=== PATIENT | male | born 1940 | race African-American/Black ===

== ENCOUNTER 2016-08-14 17:04 | Inpatient (IN) | payer OTHER ==
[~2016-08-14] VITALS: Ht 182.9 cm; Wt 72.8 kg
[2016-08-14] VITALS (21 sets, daily range): BP systolic 84–123; BP diastolic 48–62
--- NOTE | ~2016-08-14 | HC ---
[facility] [place] [address] CONSULTATION Name: FRANK MASON Room #: 237-P [facility] IN ..#: [id number] Admission: 08/14/16 Attend Phys: Watson Arthur MD Discharge: Date of : 39 Report #: [id number] THIS REPORT FOR: //name// CC: Watson Silva DATE OF SERVICE: 08/15/2016 REASON FOR CONSULTATION: Hyperosmolar nonketotic hyperglycemic state. HISTORY OF PRESENT ILLNESS: This 76-year-old male has known longstanding diabetes mellitus. He was admitted to [facility] recently on 08/02/2016 with an acute cerebrovascular event. He was discharged on 08/09/2016 to [facility]. He has been a resident at [facility] since that time. He presented to the Emergency Room on 08/14/2016 with respiratory distress and fever. He was found to have a white blood cell count of 21,800, creatinine of 3.7 and a glucose value of 1477. He was admitted to the Intensive Care Unit for further evaluation and management. His serum sodium on admission was elevated at 153. The patient is noncommunicative and no other details are available. Dr. Sandoval of our practice was called at 1:30 this morning for fluid and electrolyte management in view of his marked hyperglycemia and hypernatremia. PAST MEDICAL HISTORY: Remarkable for longstanding diabetes mellitus and hypertension. He has the recently diagnosed acute cerebrovascular accident. He suffers from chronic seizure disorder. He has a PEG tube in place. The remainder of the personal and social history, family history and review of systems are nonobtainable. PHYSICAL EXAMINATION: GENERAL: Reveals a lethargic, poorly arousable, elderly male who was obviously dehydrated with no edema, diminished skin turgor and dry mucous membranes. VITAL SIGNS: Blood pressure 144/68, pulse 109, temperature 100.2. SKIN: Remarkable for diminished turgor, no edema and dry membranes. Neck veins are flat. HEENT: The head is normocephalic and atraumatic. The sclerae are white. The pharynx is benign. NECK: Supple. LUNGS: Preciado reveal scattered rhonchi without gross crackles or wheezes heard. CARDIOVASCULAR: Reveals a regular rate and rhythm without rub. ABDOMEN: Soft and nontender. There is a Mas catheter in place draining a small amount of concentrated appearing urine. EXTREMITIES: There is a PEG tube in place, which is clean and dry. NEUROLOGIC: Reveals the patient to be very lethargic [place] [address] CONSULTATION Name: FRANK MASON Room #: [address] [place] [address] [place] .R.#: [id number] Admission: 08/14/16 Attend Phys: Watson Arthur MD Discharge: Date of : 39 Report #: [id number] DIAGNOSTIC DATA: Laboratory studies available at the time of consultation include sodium 160, potassium 4.1, chloride 127, CO2 of 21, BUN 77, creatinine 2.4, glucose 321. White blood cell count is 17,400, hemoglobin 11.4, hematocrit 37.5, platelet count of 216,000. ASSESSMENT: 1. Hyperosmolar nonketotic hyperglycemia in this poorly managed diabetic. He is on an insulin drip at this time. We will administer hypotonic fluid in an effort to control his serum sodium. His sodium should not be corrected too rapidly. I believe that this abnormality has occurred over the past several days. 2. Status post recent cerebrovascular accident. 3. Hypernatremia. 4. Hypertension. PLAN: The patient will require regular metabolic management with adjustment of IV fluids as is being done since 1:30 a.m. this morning. I will maintain close contact with the patient's nurse and follow serial laboratory studies, I and O and daily weights through the course of the day. Please see orders. Critical care time 60 minutes. <ELECTRONICALLY SIGNED> By: Sukh Delgado MD 08/17/16 0649 1541 2315 Sukh Delgado MD /nt
--- NOTE | ~2016-08-14 | HC ---
[facility] [place] [address] CONSULTATION Name: MASONFRANK Room #: 241-P [facility] IN M.R.#: [id number] Admission: 08/14/16 Attend Phys: Watson Arthur MD Discharge: Date of : 39 Report #: [id number] THIS REPORT FOR: //name// CC: Watson Silva REASON FOR CONSULTATION: I was asked to evaluate concerning pneumonia and respiratory failure. HISTORY OF PRESENT ILLNESS: The patient is a 76-year-old [facility] patient with underlying diabetes, stroke, hypertension, seizure disorder, and vascular dementia. Hospitalized on 08/14/2016 with hyperglycemic hyperosmolar state with pneumonia and toxic metabolic encephalopathy. He subsequently aspirated and was to the intensive care unit, now intubated on FIO2 of 40%. He has a feeding tube to drainage. He has an indwelling Mas catheter. He has had liquid stools. He also has had leukocytosis. No active seizure activity. ALLERGIES: To PENICILLIN, but tolerates cephalosporins. MEDICATIONS: As noted on his MAR, now on meropenem and vancomycin. PAST MEDICAL HISTORY: Diabetes, left carotid endarterectomy, PEG tube, stroke, hypertension, seizure disorder, dysphagia, BPH, and dementia. FAMILY HISTORY: Noncontributory. SOCIAL HISTORY: As noted above. Nonsmoker. No significant alcohol intake. PHYSICAL EXAMINATION: VITAL SIGNS: Afebrile and hemodynamically stable. His maximum temperature was yesterday morning 102.3 degrees. He is on a propofol drip. He is incontinent of soft liquid stool. He is on FIO2 of 60%. HEENT: He has left hemiparesis with increased muscle tone on the left side. Pupils are equal, round and reactive to light. Orally intubated. LUNGS: Coarse posteriorly. No consolidation. HEART: Regular without murmur. ABDOMEN: Soft, nontender, no hepatosplenomegaly or mass. His PEG site was unremarkable. GENITOURINARY: External genitalia unremarkable with indwelling Mas catheter. A small decubitus to his right buttock and his left upper inner thigh. LABORATORY STUDIES: Sodium 143, potassium 3.7, CO2 of 22, creatinine 2.2 from 1.1 two days ago, blood glucose up to 400, was down 59 earlier this morning. Liver function tests unremarkable. Hemoglobin 8.2 down from 13.4 on admission. WBC 14.6, platelet count 201,000, no differential was done. Vancomycin level is pending. MRSA screen positive. C. difficile PCR pending. ABG from this morning pending. From admission, sputum revealed MRSA and Proteus with negative [address] [address] CONSULTATION Name: FRANK MASON Room #: [facility] IN M.R.#: [id number] Admission: 08/14/16 Attend Phys: Watson Arthur MD Discharge: Date of : 39 Report #: [id number] blood cultures. Urine culture showed Proteus less than 10,000. The sputum culture revealed Proteus mirabilis, which was resistant to quinolones, Bactrim and tetracycline, to gentamicin, sensitive to first generation cephalosporins, ampicillin, tobramycin, and Zosyn. Chest x-ray, interstitial infiltrates bilaterally with basilar atelectasis most consistent with pulmonary edema. IMPRESSION: A 76-year-old with multiple strokes compromised with diabetes and dementia, now with respiratory failure following aspiration, in addition likely has a component of edema either cardiogenic or noncardiogenic. We would recommend continuing combination antibiotic with vancomycin and meropenem. We will repeat his sputum culture. Adjust his antibiotics for his acute renal failure. Obtain BNP. Nephrology is assisting with fluid management. <ELECTRONICALLY SIGNED> By: Baljeet Heart MD 08/23/16 0958 0929 211 Baljeet Heart MD /nt
--- NOTE | ~2016-08-14 | O ---
[facility] [place] [address] OPERATIVE REPORT Name: FRANK MASON Room #: 241-P [facility] IN M.R.#: [id number] Admission: 08/14/16 Attend Phys: Watson Arthur MD Discharge: Date of : 39 Report #: [id number] THIS REPORT FOR: //name// CC: Watson Silva DATE OF SERVICE: 08/30/2016 PREOPERATIVE DIAGNOSIS: Respiratory failure. POSTOPERATIVE DIAGNOSIS: Respiratory failure. OPERATION PERFORMED: Tracheotomy with Yenifer skin flap reconstruction. HISTORY: The patient is an unfortunate 76-year-old gentleman with prolonged respiratory failure and ventilatory dependence. I have been asked to evaluate for tracheotomy placement. PROCEDURE: The patient was brought to the operating room, placed supine on the operating table. After adequate general anesthesia was achieved via his indwelling endotracheal tube, the shoulder was placed and the neck was extended. Planned incision was marked out in a relaxed skin tension line just above the manubrium just inferior to the cricoid cartilage and injected with 1% Xylocaine with 1:100,000 epinephrine. He was prepped with Betadine and draped in a sterile fashion. Procedure began with incision through the skin, subcutaneous tissue and platysma. Using a Harmonic scalpel, the skin flaps were then elevated superiorly and inferiorly. The fascia was divided in the midline and reflected inferiorly. This was then reflected side to side and strap muscles were divided in the midline and retracted laterally. Dissection was made down to the trachea. The thyroid isthmus was isolated with a hemostat and this was taken down with Harmonic forceps. The trachea was cleaned of soft tissue. Entrance was then made into the trachea between the second and third tracheal rings. A standard Yenifer flap was created inferiorly based. This flap was then sutured to the inferior skin flap creating a fenestration. In concert with anesthesia, while the endotracheal tube was removed, the trachea was examined and suctioned. A #8 Shiley cuffed, nonfenestrated tracheotomy tube was placed without problem. The balloon was inflated and this was connected to the anesthesia circuit with positive end tidal CO2. Surgicel was then placed opposite the cut edges of the thyroid isthmus and then, the skin flaps were then closed loosely with interrupted 2-0 Vicryl sutures. The tracheotomy flanges were sutured to skin with 2-0 silk sutures and then Velcro trach ties were applied. The patient was [address] [address] OPERATIVE REPORT Name: MASONFRANK Room #: 241-P [facility] IN [facility]#: [id number] Admission: 08/14/16 Attend Phys: Watson Arthur MD Discharge: Date of : 39 Report #: [id number] returned to anesthesia, awake without difficulty, returned to his Intensive Care Unit without complication. Blood loss was 5 mL. <ELECTRONICALLY SIGNED> By: Bud Gutiérrez MD 08/31/16 1233 1519 1805 Bud Gutiérrez MD /reinaldo
--- NOTE | ~2016-08-14 | HC ---
[facility] [address] [place] [address] CONSULTATION Name: FRANK MASON Room #: 241-P ADM IN M.R.#: [id number] Admission: 08/14/16 Attend Phys: Watson Arthur MD Discharge: Date of : 39 Report #: [id number] THIS REPORT FOR: //name// CC: W[facility]SON [facility] DATE OF SERVICE: 08/28/2016 SURGEON : Bud Gutiérrez M.D. REASON FOR CONSULTATION: Consideration of tracheotomy. HISTORY OF PRESENT ILLNESS: The patient is a 76-year-old gentleman, admitted to [facility] via the Emergency Department on 08/14/2016. History is gleaned from his ICU nurse as well as records as the patient is intubated and ventilated and there are no family available. Review of the patient's chart shows extensive admissions and discharges over the course of the last year. The patient presented via EMS from [facility] with respiratory distress, fever and acute loss of consciousness. The patient apparently had a CVA in his most recent admission prior to this and was essentially unresponsive to all stimuli except painful stimuli. The patient became unresponsive at [facility] and EMS was called. The patient was admitted, intubated and ventilated. The patient had a brief period where he improved, was sent to the floor, worsened on the floor and was readmitted to the intensive care unit. The patient had an EEG done showing extensive encephalopathy and a little hope is left for the patient's recovery. The patient has been counseled by his medical team on this, but they still are insisting on full code and all measures to be done. For that reason, I have been consulted to consider tracheotomy secondary to prolonged ventilation secondary to respiratory failure. PAST MEDICAL HISTORY: Significant for cerebrovascular accident, altered mental status with nonresponse, sepsis, diabetes, electrolyte abnormality and pneumonia. PAST SURGICAL HISTORY: He has a surgical history of at least a left carotid endarterectomy. REVIEW OF SYSTEMS: Impossible and only gleaned from the chart. SOCIAL HISTORY: The patient does have active family, who are not present today to discuss. He lives in our senior care. His alcohol and smoking history is unknown. MEDICATIONS: Are per his MAR. [facility] [address] [place] [address] CONSULTATION Name: FRANK MASON Room #: 241-P [facility] IN [facility]#: [id number] Admission: 08/14/16 Attend Phys: Watson Arthur MD Discharge: Date of : 39 Report #: [id number] ALLERGIES: PENICILLIN. PHYSICAL EXAMINATION: GENERAL: A cachectic 76-year-old male, seen in his intensive care unit. He is intubated and ventilated. VITAL SIGNS: Show a temperature of 98.9, blood pressure of 143/62, pulse of 92. The patient has an indwelling endotracheal tube, making oral cavity examination difficult. NECK: Shows a midline trachea. There are no masses or abnormal adenopathy. LUNGS: Show ventilated breath sounds. LABORATORY DATA: Shows a white count of 16,300 with hemoglobin of 7.5. Electrolytes: Potassium of 3.8, sodium of 146, BUN of 42, creatinine of 1.7 and glucose of 84. Chest x-ray shows indwelling PICC line and endotracheal tube, bilateral [id number] lobe infiltrates and atelectasis without improvement. ASSESSMENT AND PLAN: 1. Respiratory failure with ventilatory dependence, currently intubated. Based on recent EEG findings, it is unlikely for him to improve. Dr. Arthur has discussed with the family comfort care versus placement of tracheotomy. They understand that this would prolong his life, but not necessarily improve his quality of life and that the patient will continue to be ventilated with tracheotomy in place. 2. Encephalopathy with recent neurologic consultation, poor prognosis. 3. Type 2 diabetes mellitus, poor control. 4. Acute kidney injury, followed by Nephrology. 5. Seizure disorder. 6. Recent cerebrovascular accident. 7. Malnutrition. PLAN: We will try to discuss with the family again options of tracheotomy. Tracheotomy in this patient holds little hope of reversing his clinical picture and may prolong his life on a ventilator with little hope of improvement. Family is making their decision over the next 24-48 hours per his ICU nurse. I will tentatively schedule the tracheotomy for this Friday in 48 hours and try to discuss this with the family beforehand. I appreciate the consultation and ability to share in his care. <ELECTRONICALLY SIGNED> By: Bud Gutiérrez MD 08/30/16 1526 1629 0032 Bud Gutiérrez MD /nt
--- NOTE | ~2016-08-14 | EEG ---
[facility] [place] [address] ELECTROENCEPHALOGRAM Name: FRANK MASON Room #: 241-P [facility] IN M.R.#: [id number] Admission: 08/14/16 Attend Phys: Watson Arthur MD Discharge: Date of : 39 Report #: [id number] THIS REPORT FOR: //name// CC: Watson Julian [facility] DATE OF SERVICE: 08/23/2016 This patient is being evaluated for altered mental status. The EEG was done by placing the electrodes by standard 10-20 system of electrode placement. Both referential and sequential montages were used for recording. Background activity in this patient's EEG is about 5 Hz and 30 microvolts. It continued to be same activity throughout the record. Photic stimulation is unremarkable. IMPRESSION: This is a severely abnormal EEG, which typically occur with encephalopathy. However, the finding is nonspecific and therefore, clinical correlation is recommended. Thank you very much for this referral. <ELECTRONICALLY SIGNED> By: Dustin Singh MD 08/26/16 1322 49 38 Dustin Singh MD /nt
--- NOTE | ~2016-08-14 | 2DMMODE ---
[facility] [place] [address] 2 D/M-MODE ECHOCARDIOGRAM Name: FRANK MASON Room #: 241-P [facility] IN .#: [id number] Admission: 08/14/16 Attend Phys: Watson Arthur MD Discharge: Date of : 39 Date of Service: 08/22/16 1040 Report #: [id number] THIS REPORT FOR: //name// Transthoracic Echocardiography Ordering physician: Gagan Cotto Referring physician: Iesha Silva Vijay Brim Raiser: Catia Silva Indications/History: Respiratory failure. Hx: CVA, DM, HTN BP: 99 / 45 HR: 95bpm Height: 70in Weight: 163.7lb Study data: Complete echo was done 08/05/16. Limited 2D, limited spectral Doppler, and color Doppler. Location: Bedside. Routine. Image quality was fair. The study was technically limited due to poor acoustic window availability. Patient in ICU on a vent. 2D measurements Normal Normal LVID ED 36-57 IVS ED 6-11 LVID ES 23-40 LVPW ED 6-11 LA volume index 16-28 AoRoot diam ED 21-37 LVOT diameter 18-23 Findings: Left ventricle: The cavity size was normal. Systolic function was normal. The estimated ejection fraction was in the range of 60% to 65%. Wall motion was normal. Right ventricle: The cavity size was normal. Systolic function was normal. Right atrium: The atrium was normal in size. Left atrium: The atrium was normal in size. Aortic valve: Structurally normal valve.Sclerotic leaflets. Doppler: There was no stenosis. No regurgitation. Mitral valve: Structurally normal valve. Doppler: There was no evidence for stenosis. Mild regurgitation. [facility] [address] [place] [address] 2 D/M-MODE ECHOCARDIOGRAM Name: FRANK MASON Room #: 241-P [facility] IN M.R.#: [id number] Admission: 08/14/16 Attend Phys: Watson Arthur MD Discharge: Date of : 39 Date of Service: 08/22/16 1040 Report #: [id number] Tricuspid valve: Structurally normal valve. Doppler: There was no evidence for stenosis. Mild regurgitation. Regurgitant peak velocity: 305.4cm/s. Peak RV-RA gradient: 37mm Hg (S). Pericardium: There was no pericardial effusion. Pleura: There was a right pleural effusion. There was a left pleural effusion. Pulmonary artery: Systolic pressure was estimated to be 47mm Hg. Systemic veins: Inferior vena cava: The vessel was dilated; the respirophasic diameter changes were blunted (< 50%). Conclusions 1. Left ventricle: Systolic function was normal. The estimated ejection fraction was in the range of 60% to 65%. Wall motion was normal. 2. Mitral valve: Mild regurgitation. 3. Tricuspid valve: Peak RV-RA gradient: 37mm Hg (S). 4. Pericardium, extracardiac: There was no pericardial effusion. There was a right pleural effusion. There was a left pleural effusion. <ELECTRONICALLY SIGNED> By: Cody Bryan MD, FACC 08/22/16 1133 1040 113 Cody Bryan MD, FACC /alee
--- NOTE | ~2016-08-14 | HC ---
[facility] [place] [address] CONSULTATION Name: FRANK MASON Room #: 241-P [facility] IN .R.#: [id number] Admission: 08/14/16 Attend Phys: Watson Arthur MD Discharge: Date of : 39 Report #: [id number] THIS REPORT FOR: //name// CC: Watson Silva DATE OF SERVICE: 08/23/2016 HISTORY OF PRESENT ILLNESS: This is a 76-year-old male patient who was evaluated by me neurologically today. No family member is here. I talked to the nurses looking after this patient. This patient does not provide any history. He is intubated. We will try to contact the family. This patient has a history of diabetes as well as CVA as per record. Further history for that is not available. This patient apparently had a history of seizures too. What kind of seizure he had is also not clear. He is on Keppra 500 mg b.i.d. and that should be a good dose for him because his last GFR is pretty significantly low. This is all the history I can get on this patient. REVIEW OF SYSTEMS: Pretty extensive in this patient. This patient has renal problems, respiratory problems, hyponatremia, diabetes, CVA. This was the 14-point review of system I can get from record. PAST MEDICAL HISTORY: Extensive. He is positive for CVA and seizure, but further history is not available. FAMILY HISTORY: Unavailable. SOCIAL HISTORY: This patient lives in a assisted as I understand. PHYSICAL EXAMINATION: Very limited. He has no response of any kind of the painful or verbal stimuli. According to nurses, he is not on any sedation. He has no reflexes. Rest of the examination is extremely difficult in this patient because of the above factors. I cannot tell about the pupil in this patient. He is intubated. He is reasonably well-developed individual who does not have any dysmorphic features of eyes, ears and face. His last temperature is 98.7, pulse is 97, blood pressure is 138/63. LABORATORY DATA: His white count is 16.1. I reviewed his EEG. IMPRESSION: This patient's clinical and electrophysiological finding is consistent with severe encephalopathy. There is no active seizure going on in the patient's EEG. RECOMMENDATIONS: 1. I will suggest continue the management of metabolic problems. 2. I do not think we need to readjust the dose of Keppra. [address] [address] CONSULTATION Name: FRANK MASON Room #: 241-P [facility] IN ..#: [id number] Admission: 08/14/16 Attend Phys: Watson Arthur MD Discharge: Date of : 39 Report #: [id number] 3. Family needs to decide how aggressive to be in this patient. Thank you very much for this referral. <ELECTRONICALLY SIGNED> By: Dustin Singh MD 08/26/16 1245 09 MD lianna Huston
--- NOTE | ~2016-08-14 | EKG ---
[address] [address] ELECTROCARDIOGRAM REPORT Name: FRANK MASON Room #: 237-P ADM IN M.R.#: [id number] Admission: 08/14/16 Attend Phys: Watson Arthur MD Discharge: Date of : 39 Report #: [id number] THIS REPORT FOR: //name// [facility] ED Test Date: 2016-08-14 Test Time: 17:22:51 Pat Name: FRANK MASON Department: Room: 237 Gender: M Grader Tender: KEVIN : 1940 Requested By: Baljeet Silverman Order Number: [id number] MD: Moe Collins Measurements Intervals [place] Rate: 107 P: 82 FL: 131 QRS: -68 QRSD: 88 T: 82 QT: 359 QTc: 479 Interpretive Statements Sinus tachycardia Left anterior fascicular block Borderline prolonged QT interval Compared to ECG 08/02/2016 09:54:45 Left anterior fascicular block now present Nonspecific change in the ST and T wave segments Electronically Signed On 08-16-2016 9:16:23 [employer] by Moe Collins [email or web address] <ELECTRONICALLY SIGNED> By: Moe Collins MD, [facility] 08/16/16 0916 172 172 Moe Collins MD, [facility] /EPI
[~2016-08-14 17:04] MED LIST: AMLODIPINE BESY10 MG PO; ARICEPT 5 MG TAB5 MG PO; ASPIR 8181 MG PO; ASPIRIN325 PO; CENTRUM SILVER1 EAC4 PO; COLACE100 MG PO; COREG3.125 MG PO; COREG6.25 MG PO; COUMADIN7.5 MG PO; FLOMAX0.4 MG PO; FOLBIC RF TABL1 EACH PO; GLUCOTROL5 MG PO; HUMALOG100 UNIT/1 SUBQ; IRON325 PO; KEPPRA 500 MG500 M1 PO; KEPPRA 500 MG500 M2 PO; LATANOPROST 0.2.5 ML OPHTHALMIC; LISINOPRIL20 MG PO; LISINOPRIL40 MG PO; MELATONIN3 MG PO; METFORMIN HCL500 MG PO; NORVASC10 MG PO; PRAVACHOL40 MG PO; SSD CREAM 1% 5050 GM TOP; TRADJENTA5 MG PO; TRAVATAN Z5 ML OP; TYLENOL325 MG PO; UNICOMPLEX M TA1 TA1 PO; VITAMIN B-12500 MCG PO
[2016-08-14 17:44] LABS: HEMATOCRIT 43.5 % (42.0-52.0); HEMOGLOBIN 13.4 gm/dL (14.0-18.0); MCH 25.2 pg (26.0-34.0); MCHC 30.7 % (28.0-37.0); PLATELET COUNT 287 thou/uL (150-400); RDW 16.7 % (10.5-14.5); WBC 21.8 thou/uL (4.0-11.0)
[2016-08-14 17:49] LABS: MANUAL DIFF YES
[2016-08-14 17:51] LABS: URINE BILIRUBIN NEGATIVE (Negative); URINE BLOOD 3+ (Negative); URINE COLOR YELLOW; URINE GLUCOSE-RANDOM* 3+ (Negative); URINE KETONES TRACE (Negative); URINE NITRITE NEGATIVE (Negative); URINE PROTEIN (DIPSTICK) TRACE (Negative); URINE UROBILINOGEN 0.2 E.U./dl (0.2-1.0)
[2016-08-14 18:03] LABS: CASTS None Seen /LPF (None Seen); CRYSTALS None Seen /LPF (None Seen); SQUAMOUS 0-3 Few /LPF (0-3)
[2016-08-14 18:04] LABS: BACTERIA 1-9 Few /HPF (None Seen); CALCIUM 9.4 mg/dL (8.5-10.1); CREATININE 3.7 mg/dL (0.6-1.3); POTASSIUM 5.6 mmol/L (3.5-5.1); URINE RBC >20 Many /HPF (0-2); URINE WBC 0-5 Rare /HPF (0-5)
[2016-08-14 18:16] LABS: TOTAL CELL COUNT 100
[2016-08-14 18:31] LABS: ALBUMIN 2.7 g/dL (3.4-5.0); CK-MB MASS 0.6 ng/mL (<0.5-3.6); MAGNESIUM 3.2 mg/dL (1.8-2.4); TOTAL BILIRUBIN 0.4 mg/dL (<0.1-1.0); TOTAL PROTEIN 7.3 g/dL (6.4-8.2); TROPONIN-I 0.05 ng/mL (<0.04-0.07)
[2016-08-14 18:45] LABS: ABG SAMPLE TYPE ARTERIAL; HCO3 23.9 mmol/L (22.0-26.0); LACTATE 2.25 mmol/L (0.5-2.0); O2(CT) 15.8 mL/dL (15.0-23.0); PCO2 45.3 mmHg (35.0-45.0); STICK SITE R.RADIAL; sO2 92.2 % (92.0-98.0); tCO2 25.3 mmol/L (24.0-30.0)
[2016-08-14 18:46] LABS: Face Shield 50 %
[2016-08-14 21:26] LABS: ABG SAMPLE TYPE VENOUS; BE(vivo) -6.6 mmol/L (-2 to +3); Face Shield 95 %; HCO3 21.1 mmol/L (22.0-26.0); LACTATE 3.04 mmol/L (0.5-2.0); O2(CT) 13.5 mL/dL (15.0-23.0); O2Hb VENOUS 78.4 (65.0-85.0); PCO2 VENOUS 51.4 mmHg (41.0-51.0); PO2 VENOUS 50.3 mmHg (35.0-45.0); STICK SITE LINE; sO2 VENOUS 78.4 % (65.0-85.0); tCO2 22.7 mmol/L (24.0-30.0)
[2016-08-14 21:42] LABS: HEMATOCRIT 37.5 % (42.0-52.0); MCH 25.2 pg (26.0-34.0); MCHC 30.3 % (28.0-37.0); MCV 83.2 fL (80.0-100.0); PLATELET COUNT 216 thou/uL (150-400); RBC 4.51 mil/uL (4.50-6.00); RDW 16.7 % (10.5-14.5); WBC 17.4 thou/uL (4.0-11.0)
[2016-08-14 21:44] LABS: HEMOGLOBIN 11.4 gm/dL (14.0-18.0)
[2016-08-14 21:45] LABS: MANUAL DIFF YES
[2016-08-14 22:01] LABS: APTT 22.4 Seconds (24.5-32.8); FIBRINOGEN 358.5 mg/dL (210-360); INR 1.2
[2016-08-14 22:02] LABS: CALCIUM 7.9 mg/dL (8.5-10.1); CREATININE 3.4 mg/dL (0.6-1.3)
[2016-08-14 22:03] LABS: ABSOLUTE NEUTROPHILS 15.3 thou/uL (1.4-8.2); ANISOCYTOSIS 1+; POTASSIUM 4.3 mmol/L (3.5-5.1); TOTAL CELL COUNT 100
[2016-08-14 22:06] LABS: TOTAL BILIRUBIN 0.3 mg/dL (<0.1-1.0)
[2016-08-14 22:07] LABS: ALBUMIN 1.9 g/dL (3.4-5.0); TOTAL PROTEIN 5.4 g/dL (6.4-8.2)
[2016-08-14 22:40] LABS: ABG SAMPLE TYPE VENOUS; BE(vivo) -7.6 mmol/L (-2 to +3); Face Shield 95 %; HCO3 19.6 mmol/L (22.0-26.0); O2(CT) 10.1 mL/dL (15.0-23.0); PCO2 VENOUS 46.7 mmHg (41.0-51.0); PO2 VENOUS 38.1 mmHg (35.0-45.0); STICK SITE LINE; sO2 VENOUS 62.8 % (65.0-85.0)
[2016-08-14 23:26] LABS: MAGNESIUM 2.8 mg/dL (1.8-2.4)
[2016-08-14 23:38] LABS: ABG SAMPLE TYPE VENOUS; BE(vivo) -7.8 mmol/L (-2 to +3); Face Shield 95 %; HCO3 20.1 mmol/L (22.0-26.0); LACTATE 3.58 mmol/L (0.5-2.0); O2(CT) 8.5 mL/dL (15.0-23.0); O2Hb VENOUS 53.7 (65.0-85.0); PCO2 VENOUS 51.4 mmHg (41.0-51.0); PO2 VENOUS 33.6 mmHg (35.0-45.0); STICK SITE LINE; sO2 VENOUS 52.3 % (65.0-85.0); tCO2 21.7 mmol/L (24.0-30.0)
[2016-08-15] VITALS (95 sets, daily range): BP systolic 76–158; BP diastolic 46–85
[2016-08-15 00:42] LABS: ABG SAMPLE TYPE VENOUS; BE(vivo) -6.7 mmol/L (-2 to +3); HCO3 20.6 mmol/L (22.0-26.0); O2(CT) 9.9 mL/dL (15.0-23.0); O2Hb VENOUS 61.5 (65.0-85.0); PO2 VENOUS 36.9 mmHg (35.0-45.0); sO2 VENOUS 60.6 % (65.0-85.0); tCO2 22.1 mmol/L (24.0-30.0)
[2016-08-15 00:43] LABS: Face Shield 95 %; LACTATE 3.61 mmol/L (0.5-2.0); STICK SITE LINE
[2016-08-15 01:00] LABS: APTT 20.7 Seconds (24.5-32.8); FIBRINOGEN 329.1 mg/dL (210-360); INR 1.2
[2016-08-15 01:10] LABS: CALCIUM 7.1 mg/dL (8.5-10.1); CREATININE 2.8 mg/dL (0.6-1.3); MAGNESIUM 2.4 mg/dL (1.8-2.4); POTASSIUM 3.8 mmol/L (3.5-5.1)
[2016-08-15 01:13] LABS: ALBUMIN 1.7 g/dL (3.4-5.0)
[2016-08-15 01:17] LABS: TOTAL BILIRUBIN 0.2 mg/dL (<0.1-1.0); TOTAL PROTEIN 4.9 g/dL (6.4-8.2)
[2016-08-15 01:28] LABS: ABG SAMPLE TYPE ARTERIAL; BE(vivo) -7.9 mmol/L (-2 to +3); HCO3 17.9 mmol/L (22.0-26.0); LACTATE 3.15 mmol/L (0.5-2.0); O2(CT) 14.6 mL/dL (15.0-23.0); O2Hb 87.6 % (92.0-98.0); PCO2 37.7 mmHg (35.0-45.0); PO2 59.2 mmHg (80.0-100.0); sO2 88.1 % (92.0-98.0)
[2016-08-15 01:29] LABS: Face Shield 95 %; STICK SITE L.RADIAL; pH 7.294 (7.360-7.450)
[2016-08-15 01:45] LABS: ABG SAMPLE TYPE VENOUS; BE(vivo) -7.7 mmol/L (-2 to +3); HCO3 19.1 mmol/L (22.0-26.0); LACTATE 3.23 mmol/L (0.5-2.0); O2(CT) 9.3 mL/dL (15.0-23.0); O2Hb VENOUS 58.8 (65.0-85.0); PO2 VENOUS 34.2 mmHg (35.0-45.0); sO2 VENOUS 56.8 % (65.0-85.0); tCO2 20.5 mmol/L (24.0-30.0)
[2016-08-15 01:46] LABS: Face Shield 95 %; STICK SITE LINE
[2016-08-15 02:44] LABS: ABG SAMPLE TYPE VENOUS; BE(vivo) -8.2 mmol/L (-2 to +3); HCO3 18.1 mmol/L (22.0-26.0); O2Hb VENOUS 55.5 (65.0-85.0); PCO2 VENOUS 40.2 mmHg (41.0-51.0); PO2 VENOUS 31.9 mmHg (35.0-45.0); sO2 VENOUS 53.4 % (65.0-85.0); tCO2 19.3 mmol/L (24.0-30.0)
[2016-08-15 02:45] LABS: Face Shield 95 %; STICK SITE LINE
[2016-08-15 04:27] LABS: ABG SAMPLE TYPE ARTERIAL; BE(vivo) -6.6 mmol/L (-2 to +3); HCO3 18.5 mmol/L (22.0-26.0); LACTATE 2.97 mmol/L (0.5-2.0); O2(CT) 15.5 mL/dL (15.0-23.0); O2Hb 93.7 % (92.0-98.0); PCO2 35.5 mmHg (35.0-45.0); STICK SITE L.RADIAL; pH 7.334 (7.360-7.450); sO2 95.2 % (92.0-98.0); tCO2 19.6 mmol/L (24.0-30.0)
[2016-08-15 05:44] LABS: HEMATOCRIT 34.6 % (42.0-52.0); HEMOGLOBIN 11.2 gm/dL (14.0-18.0); MCHC 32.4 % (28.0-37.0); MCV 80.2 fL (80.0-100.0); PLATELET COUNT 171 thou/uL (150-400); RBC 4.32 mil/uL (4.50-6.00); RDW 16.4 % (10.5-14.5)
[2016-08-15 05:52] LABS: MANUAL DIFF YES
[2016-08-15 06:02] LABS: INR 1.2; PROTIME 12.1 Seconds (9.3-11.4)
[2016-08-15 06:12] LABS: ALBUMIN 1.7 g/dL (3.4-5.0); CALCIUM 7.4 mg/dL (8.5-10.1); CREATININE 2.4 mg/dL (0.6-1.3); MAGNESIUM 2.2 mg/dL (1.8-2.4); PHOSPHORUS 2.9 mg/dL (2.5-4.9); POTASSIUM 4.1 mmol/L (3.5-5.1)
[2016-08-15 06:52] LABS: ABSOLUTE NEUTROPHILS 4.7 thou/uL (1.4-8.2); METAMYELOCYTES 2 %; TOTAL CELL COUNT 100
[2016-08-15 10:12] LABS: ALBUMIN 1.8 g/dL (3.4-5.0); CALCIUM 7.5 mg/dL (8.5-10.1); PHOSPHORUS 2.1 mg/dL (2.5-4.9); POTASSIUM 3.6 mmol/L (3.5-5.1)
[2016-08-15 15:26] LABS: CALCIUM 7.3 mg/dL (8.5-10.1); CREATININE 1.7 mg/dL (0.6-1.3); POTASSIUM 3.9 mmol/L (3.5-5.1)
[2016-08-16] VITALS (46 sets, daily range): BP systolic 97–164; BP diastolic 49–84
[2016-08-16 05:20] LABS: HEMOGLOBIN 10.8 gm/dL (14.0-18.0); MCH 25.5 pg (26.0-34.0); MCHC 32.7 % (28.0-37.0); MCV 78.2 fL (80.0-100.0); RBC 4.22 mil/uL (4.50-6.00); RDW 15.8 % (10.5-14.5); WBC 11.7 thou/uL (4.0-11.0)
[2016-08-16 05:48] LABS: ALBUMIN 1.7 g/dL (3.4-5.0); CALCIUM 7.4 mg/dL (8.5-10.1); CREATININE 1.5 mg/dL (0.6-1.3); PHOSPHORUS 2.5 mg/dL (2.5-4.9); POTASSIUM 3.9 mmol/L (3.5-5.1); TOTAL BILIRUBIN 0.5 mg/dL (<0.1-1.0); TOTAL PROTEIN 5.1 g/dL (6.4-8.2)
[2016-08-16 17:46] LABS: POTASSIUM 4.5 mmol/L (3.5-5.1)
[2016-08-17] VITALS (16 sets, daily range): BP systolic 104–166; BP diastolic 53–77
[2016-08-17 05:33] LABS: HEMATOCRIT 30.2 % (42.0-52.0); HEMOGLOBIN 9.8 gm/dL (14.0-18.0); MCH 25.4 pg (26.0-34.0); MCHC 32.4 % (28.0-37.0); MCV 78.6 fL (80.0-100.0); RBC 3.84 mil/uL (4.50-6.00); RDW 15.9 % (10.5-14.5); WBC 11.3 thou/uL (4.0-11.0)
[2016-08-17 05:44] LABS: ALBUMIN 1.5 g/dL (3.4-5.0); CREATININE 1.3 mg/dL (0.6-1.3); PHOSPHORUS 2.4 mg/dL (2.5-4.9)
[2016-08-17 18:07] LABS: CALCIUM 7.8 mg/dL (8.5-10.1); CREATININE 1.2 mg/dL (0.6-1.3); POTASSIUM 3.7 mmol/L (3.5-5.1)
[2016-08-18] VITALS: BP 141/71
[2016-08-18 04:20] VITALS: BP 156/77
[2016-08-18 06:47] LABS: HEMATOCRIT 30.2 % (42.0-52.0); HEMOGLOBIN 10.1 gm/dL (14.0-18.0); MCH 25.9 pg (26.0-34.0); MCHC 33.5 % (28.0-37.0); MCV 77.2 fL (80.0-100.0); RBC 3.91 mil/uL (4.50-6.00); RDW 16.2 % (10.5-14.5); WBC 9.7 thou/uL (4.0-11.0)
[2016-08-18 06:58] LABS: ALBUMIN 1.4 g/dL (3.4-5.0); CALCIUM 7.8 mg/dL (8.5-10.1); CREATININE 1.3 mg/dL (0.6-1.3); PHOSPHORUS 1.4 mg/dL (2.5-4.9); POTASSIUM 3.9 mmol/L (3.5-5.1)
[2016-08-18 08:53] VITALS: BP 146/69
[2016-08-18 16:29] VITALS: BP 155/62
[2016-08-18 19:45] VITALS: BP 145/72
[2016-08-18 23:43] VITALS: BP 141/70
[2016-08-19 03:48] VITALS: BP 143/74
[2016-08-19 05:33] LABS: HEMATOCRIT 28.6 % (42.0-52.0); HEMOGLOBIN 9.3 gm/dL (14.0-18.0); MCH 25.5 pg (26.0-34.0); MCHC 32.6 % (28.0-37.0); MCV 78.3 fL (80.0-100.0); PLATELET COUNT 88 thou/uL (150-400); RBC 3.65 mil/uL (4.50-6.00); RDW 15.9 % (10.5-14.5)
[2016-08-19 05:34] LABS: MANUAL DIFF YES
[2016-08-19 05:53] LABS: ALBUMIN 1.2 g/dL (3.4-5.0); CALCIUM 7.8 mg/dL (8.5-10.1); CREATININE 1.1 mg/dL (0.6-1.3); MAGNESIUM 2.1 mg/dL (1.8-2.4); PHOSPHORUS 1.1 mg/dL (2.5-4.9); POTASSIUM 3.8 mmol/L (3.5-5.1); TOTAL BILIRUBIN 0.4 mg/dL (<0.1-1.0)
[2016-08-19 06:22] LABS: ABSOLUTE NEUTROPHILS 5.6 thou/uL (1.4-8.2); ANISOCYTOSIS SLIGHT; LARGE PLATELETS OCCASIONAL; TOTAL CELL COUNT 100
[2016-08-19 07:49] VITALS: BP 152/76
[2016-08-19 12:18] VITALS: BP 143/72
[2016-08-19 16:14] VITALS: BP 125/55
[2016-08-19 20:05] VITALS: BP 130/59
[2016-08-19 23:50] VITALS: BP 138/43
[2016-08-20] VITALS (14 sets, daily range): BP systolic 111–159; BP diastolic 49–130
[2016-08-20 05:44] LABS: CALCIUM 7.7 mg/dL (8.5-10.1); CREATININE 1.1 mg/dL (0.6-1.3); POTASSIUM 3.6 mmol/L (3.5-5.1)
[2016-08-20 20:58] LABS: ABG SAMPLE TYPE ARTERIAL; BE(vivo) -1.4 mmol/L (-2 to +3); HCO3 23.2 mmol/L (22.0-26.0); LACTATE 2.37 mmol/L (0.5-2.0); O2(CT) 12.7 mL/dL (15.0-23.0); O2Hb 83.8 % (92.0-98.0); PCO2 38.3 mmHg (35.0-45.0); PO2 50.8 mmHg (80.0-100.0); STICK SITE R.RADIAL; sO2 86.2 % (92.0-98.0); tCO2 24.4 mmol/L (24.0-30.0)
[2016-08-20 21:57] LABS: HEMATOCRIT 28.9 % (42.0-52.0); HEMOGLOBIN 9.8 gm/dL (14.0-18.0); MCH 25.7 pg (26.0-34.0); MCHC 33.9 % (28.0-37.0); MCV 75.9 fL (80.0-100.0); RBC 3.81 mil/uL (4.50-6.00); RDW 15.6 % (10.5-14.5); WBC 9.4 thou/uL (4.0-11.0)
[2016-08-20 22:05] LABS: CALCIUM 7.6 mg/dL (8.5-10.1); CREATININE 1.3 mg/dL (0.6-1.3); POTASSIUM 3.8 mmol/L (3.5-5.1)
[2016-08-21] VITALS (28 sets, daily range): BP systolic 87–129; BP diastolic 48–66
[2016-08-21 05:08] LABS: HEMATOCRIT 28.4 % (42.0-52.0); HEMOGLOBIN 9.4 gm/dL (14.0-18.0); MCH 25.7 pg (26.0-34.0); MCHC 33.2 % (28.0-37.0); MCV 77.4 fL (80.0-100.0); RBC 3.67 mil/uL (4.50-6.00); RDW 15.7 % (10.5-14.5); WBC 10.5 thou/uL (4.0-11.0)
[2016-08-21 05:16] LABS: CALCIUM 7.7 mg/dL (8.5-10.1); CREATININE 1.5 mg/dL (0.6-1.3); POTASSIUM 3.9 mmol/L (3.5-5.1)
[2016-08-21 05:58] LABS: ABG SAMPLE TYPE ARTERIAL; BE(vivo) -0.8 mmol/L (-2 to +3); HCO3 21.4 mmol/L (22.0-26.0); LACTATE 1.75 mmol/L (0.5-2.0); O2(CT) 12.9 mL/dL (15.0-23.0); O2Hb 95.9 % (92.0-98.0); PCO2 27.1 mmHg (35.0-45.0); PO2 86.1 mmHg (80.0-100.0); STICK SITE R.RADIAL; pH 7.515 (7.360-7.450); sO2 97.4 % (92.0-98.0); tCO2 22.2 mmol/L (24.0-30.0)
[2016-08-21 05:59] LABS: Pressure Support 8 cm H20
[2016-08-22] VITALS (24 sets, daily range): BP systolic 89–127; BP diastolic 45–64
[2016-08-22 04:09] LABS: HEMATOCRIT 24.6 % (42.0-52.0); HEMOGLOBIN 8.2 gm/dL (14.0-18.0); MCH 25.5 pg (26.0-34.0); MCHC 33.2 % (28.0-37.0); MCV 76.7 fL (80.0-100.0); RBC 3.21 mil/uL (4.50-6.00); RDW 15.7 % (10.5-14.5); WBC 14.6 thou/uL (4.0-11.0)
[2016-08-22 04:19] LABS: ALBUMIN 1.1 g/dL (3.4-5.0); CALCIUM 7.3 mg/dL (8.5-10.1); CREATININE 2.2 mg/dL (0.6-1.3); MAGNESIUM 2.2 mg/dL (1.8-2.4); PHOSPHORUS 5.4 mg/dL (2.5-4.9); POTASSIUM 3.7 mmol/L (3.5-5.1)
[2016-08-22 10:03] LABS: ABG SAMPLE TYPE ARTERIAL; BE(vivo) -6.1 mmol/L (-2 to +3); HCO3 20.1 mmol/L (22.0-26.0); LACTATE 1.14 mmol/L (0.5-2.0); O2(CT) 11.5 mL/dL (15.0-23.0); O2Hb 93.4 % (92.0-98.0); PO2 79.5 mmHg (80.0-100.0); sO2 94.4 % (92.0-98.0); tCO2 21.4 mmol/L (24.0-30.0)
[2016-08-22 10:04] LABS: pH 7.288 (7.360-7.450)
[2016-08-22 10:07] LABS: STICK SITE L.RADIAL
[2016-08-22 10:08] LABS: TIDAL VOLUME 500 ml
[2016-08-23] VITALS (17 sets, daily range): BP systolic 108–138; BP diastolic 48–67
[2016-08-23 05:10] LABS: HEMATOCRIT 24.1 % (42.0-52.0); HEMOGLOBIN 7.9 gm/dL (14.0-18.0); MCH 25.5 pg (26.0-34.0); MCHC 32.9 % (28.0-37.0); MCV 77.7 fL (80.0-100.0); PLATELET COUNT 238 thou/uL (150-400); RDW 15.8 % (10.5-14.5); WBC 16.1 thou/uL (4.0-11.0)
[2016-08-23 05:20] LABS: MANUAL DIFF YES
[2016-08-23 05:24] LABS: ALBUMIN 1.1 g/dL (3.4-5.0); CALCIUM 7.1 mg/dL (8.5-10.1); CREATININE 2.5 mg/dL (0.6-1.3); MAGNESIUM 2.1 mg/dL (1.8-2.4); POTASSIUM 4.5 mmol/L (3.5-5.1); TOTAL BILIRUBIN 0.5 mg/dL (<0.1-1.0); TOTAL PROTEIN 5.1 g/dL (6.4-8.2)
[2016-08-23 05:28] LABS: ABG SAMPLE TYPE ARTERIAL; BE(vivo) -4.9 mmol/L (-2 to +3); HCO3 19.4 mmol/L (22.0-26.0); LACTATE 1.41 mmol/L (0.5-2.0); O2(CT) 11.3 mL/dL (15.0-23.0); PCO2 32.7 mmHg (35.0-45.0); PO2 58.4 mmHg (80.0-100.0); sO2 90.5 % (92.0-98.0); tCO2 20.4 mmol/L (24.0-30.0)
[2016-08-23 05:30] LABS: STICK SITE L.RADIAL; TIDAL VOLUME 500 ml
[2016-08-23 07:15] LABS: ABSOLUTE NEUTROPHILS 14.3 thou/uL (1.4-8.2); TOTAL CELL COUNT 100
[2016-08-23 11:06] LABS: URINE BILIRUBIN NEGATIVE (Negative); URINE BLOOD 2+ (Negative); URINE COLOR YELLOW; URINE GLUCOSE-RANDOM* NEGATIVE (Negative); URINE KETONES NEGATIVE (Negative); URINE NITRITE NEGATIVE (Negative); URINE PROTEIN (DIPSTICK) TRACE (Negative); URINE SPECIFIC GRAVITY 1.015 (1.003-1.035); URINE UROBILINOGEN 0.2 E.U./dl (0.2-1.0)
[2016-08-23 11:14] LABS: SQUAMOUS None Seen /LPF (0-3); URINE RBC 3-10 Few /HPF (0-2); URINE WBC 0-5 Rare /HPF (0-5)
[2016-08-23 11:15] LABS: COARSE GRANULAR CASTS 0-3 Few /LPF (None Seen); CRYSTALS None Seen /LPF (None Seen)
[2016-08-23 19:07] LABS: URINE CREATININE-RANDOM* 56.6 mg/dL (Not Estab.)
[2016-08-24] VITALS (19 sets, daily range): BP systolic 113–156; BP diastolic 55–141
[2016-08-24 04:40] LABS: HEMATOCRIT 23.8 % (42.0-52.0); HEMOGLOBIN 7.9 gm/dL (14.0-18.0); MCH 25.2 pg (26.0-34.0); MCHC 33.1 % (28.0-37.0); MCV 76.2 fL (80.0-100.0); PLATELET COUNT 291 thou/uL (150-400); RBC 3.13 mil/uL (4.50-6.00); RDW 15.4 % (10.5-14.5); WBC 15.5 thou/uL (4.0-11.0)
[2016-08-24 04:43] LABS: MANUAL DIFF YES
[2016-08-24 05:06] LABS: ABSOLUTE NEUTROPHILS 13.5 thou/uL (1.4-8.2); PLATELET ESTIMATE NORMAL; TOTAL CELL COUNT 100
[2016-08-24 05:09] LABS: ALBUMIN 1.1 g/dL (3.4-5.0); CALCIUM 7.7 mg/dL (8.5-10.1); CREATININE 2.5 mg/dL (0.6-1.3); POTASSIUM 4.2 mmol/L (3.5-5.1); TOTAL BILIRUBIN 0.7 mg/dL (<0.1-1.0); TOTAL PROTEIN 5.3 g/dL (6.4-8.2)
[2016-08-25] VITALS (17 sets, daily range): BP systolic 114–163; BP diastolic 52–77
[2016-08-25 06:26] LABS: ALBUMIN 1.1 g/dL (3.4-5.0); CREATININE 2.5 mg/dL (0.6-1.3); PHOSPHORUS 6.7 mg/dL (2.5-4.9)
[2016-08-26] VITALS (24 sets, daily range): BP systolic 128–171; BP diastolic 53–81
[2016-08-26 05:23] LABS: CALCIUM 7.9 mg/dL (8.5-10.1); CREATININE 2.1 mg/dL (0.6-1.3); PHOSPHORUS 4.4 mg/dL (2.5-4.9); POTASSIUM 3.3 mmol/L (3.5-5.1)
[2016-08-27] VITALS (24 sets, daily range): BP systolic 130–176; BP diastolic 58–82
[2016-08-27 05:44] LABS: HEMATOCRIT 22.5 % (42.0-52.0); MCH 25.3 pg (26.0-34.0); MCHC 32.9 % (28.0-37.0); RBC 2.92 mil/uL (4.50-6.00); RDW 15.1 % (10.5-14.5); WBC 13.7 thou/uL (4.0-11.0)
[2016-08-27 05:55] LABS: ALBUMIN 0.9 g/dL (3.4-5.0); CALCIUM 7.3 mg/dL (8.5-10.1); CREATININE 1.7 mg/dL (0.6-1.3); DIRECT BILIRUBIN 0.3 mg/dL (<0.1-0.3); PHOSPHORUS 2.8 mg/dL (2.5-4.9); TOTAL BILIRUBIN 0.5 mg/dL (<0.1-1.0); TOTAL PROTEIN 5.3 g/dL (6.4-8.2)
[2016-08-27 06:11] LABS: POTASSIUM 2.9 mmol/L (3.5-5.1)
[2016-08-27 06:12] LABS: HEMOGLOBIN 7.4 gm/dL (14.0-18.0)
[2016-08-27 12:56] LABS: HEMATOCRIT 22.9 % (42.0-52.0); HEMOGLOBIN 7.7 gm/dL (14.0-18.0)
[2016-08-28] VITALS (56 sets, daily range): BP systolic 123–175; BP diastolic 60–85
[2016-08-28 05:06] LABS: HEMATOCRIT 22.7 % (42.0-52.0); HEMOGLOBIN 7.5 gm/dL (14.0-18.0); MCH 25.2 pg (26.0-34.0); MCHC 32.8 % (28.0-37.0); MCV 76.7 fL (80.0-100.0); RBC 2.96 mil/uL (4.50-6.00); RDW 15.4 % (10.5-14.5); WBC 16.3 thou/uL (4.0-11.0)
[2016-08-28 05:17] LABS: CALCIUM 7.7 mg/dL (8.5-10.1); CREATININE 1.7 mg/dL (0.6-1.3); PHOSPHORUS 2.4 mg/dL (2.5-4.9); POTASSIUM 3.8 mmol/L (3.5-5.1)
[2016-08-29] VITALS (21 sets, daily range): BP systolic 134–171; BP diastolic 57–76
[2016-08-29 03:04] LABS: HEMATOCRIT 22.8 % (42.0-52.0); HEMOGLOBIN 7.5 gm/dL (14.0-18.0); MCH 25.2 pg (26.0-34.0); MCHC 32.8 % (28.0-37.0); MCV 76.7 fL (80.0-100.0); RBC 2.97 mil/uL (4.50-6.00); WBC 17.2 thou/uL (4.0-11.0)
[2016-08-29 03:16] LABS: CALCIUM 7.7 mg/dL (8.5-10.1); CREATININE 1.7 mg/dL (0.6-1.3); PHOSPHORUS 2.7 mg/dL (2.5-4.9); POTASSIUM 3.7 mmol/L (3.5-5.1)
[2016-08-30] VITALS (29 sets, daily range): BP systolic 81–168; BP diastolic 48–129
[2016-08-30 05:07] LABS: HEMATOCRIT 22.3 % (42.0-52.0); MCH 25.3 pg (26.0-34.0); MCHC 33.5 % (28.0-37.0); MCV 75.5 fL (80.0-100.0); RBC 2.95 mil/uL (4.50-6.00); RDW 15.5 % (10.5-14.5); WBC 18.6 thou/uL (4.0-11.0)
[2016-08-30 05:31] LABS: HEMOGLOBIN 7.5 gm/dL (14.0-18.0)
[2016-08-30 05:36] LABS: ALBUMIN 1.1 g/dL (3.4-5.0); CALCIUM 8.1 mg/dL (8.5-10.1); CREATININE 1.5 mg/dL (0.6-1.3); PHOSPHORUS 2.8 mg/dL (2.5-4.9); POTASSIUM 3.5 mmol/L (3.5-5.1)
[2016-08-30 16:14] LABS: ABG SAMPLE TYPE ARTERIAL; BE(vivo) 1.5 mmol/L (-2 to +3); HCO3 26.2 mmol/L (22.0-26.0); LACTATE 1.78 mmol/L (0.5-2.0); O2(CT) 12.3 mL/dL (15.0-23.0); O2Hb 95.4 % (92.0-98.0); PCO2 41.5 mmHg (35.0-45.0); PO2 89.6 mmHg (80.0-100.0); pH 7.418 (7.360-7.450); tCO2 27.5 mmol/L (24.0-30.0)
[2016-08-30 16:18] LABS: CALCIUM 7.8 mg/dL (8.5-10.1); CREATININE 1.5 mg/dL (0.6-1.3); POTASSIUM 3.1 mmol/L (3.5-5.1); STICK SITE R.RADIAL; TIDAL VOLUME 500 ml
[2016-08-31] VITALS (18 sets, daily range): BP systolic 120–158; BP diastolic 54–72
[2016-08-31 06:02] LABS: CALCIUM 7.4 mg/dL (8.5-10.1); CREATININE 1.6 mg/dL (0.6-1.3); PHOSPHORUS 3.3 mg/dL (2.5-4.9); POTASSIUM 3.4 mmol/L (3.5-5.1)
[2016-08-31 06:14] LABS: HEMATOCRIT 20.3 % (42.0-52.0); MCH 25.3 pg (26.0-34.0); MCHC 33.3 % (28.0-37.0); RBC 2.67 mil/uL (4.50-6.00); RDW 15.2 % (10.5-14.5); WBC 14.8 thou/uL (4.0-11.0)
[2016-08-31 06:22] LABS: HEMOGLOBIN 6.7 gm/dL (14.0-18.0)
[2016-09-01 02:11] VITALS: BP 162/69; BP 170/89
[2016-09-01 04:46] VITALS: BP 169/91; BP 187/82
[2016-09-01 07:56] LABS: HEMOGLOBIN 7.8 gm/dL (14.0-18.0); MCH 25.9 pg (26.0-34.0); MCHC 34.1 % (28.0-37.0); RBC 3.03 mil/uL (4.50-6.00); RDW 15.4 % (10.5-14.5); WBC 15.9 thou/uL (4.0-11.0)
[2016-09-01 08:12] LABS: CALCIUM 7.6 mg/dL (8.5-10.1); CREATININE 1.4 mg/dL (0.6-1.3); POTASSIUM 3.7 mmol/L (3.5-5.1)
[2016-09-01 08:22] VITALS: BP 163/80
[2016-09-01 11:28] VITALS: BP 150/76
[2016-09-01 15:46] VITALS: BP 154/74
[2016-09-01 20:00] VITALS: BP 145/67
[2016-09-02 04:00] VITALS: BP 171/86
[2016-09-02 05:54] LABS: HEMATOCRIT 23.3 % (42.0-52.0); HEMOGLOBIN 7.7 gm/dL (14.0-18.0); MCH 25.3 pg (26.0-34.0); MCHC 33.2 % (28.0-37.0); MCV 76.2 fL (80.0-100.0); PLATELET COUNT 233 thou/uL (150-400); RBC 3.05 mil/uL (4.50-6.00); RDW 15.1 % (10.5-14.5); WBC 16.1 thou/uL (4.0-11.0)
[2016-09-02 06:07] LABS: MANUAL DIFF YES
[2016-09-02 06:21] LABS: ALBUMIN 1.1 g/dL (3.4-5.0); CALCIUM 7.6 mg/dL (8.5-10.1); CREATININE 1.5 mg/dL (0.6-1.3); PHOSPHORUS 2.5 mg/dL (2.5-4.9); POTASSIUM 3.3 mmol/L (3.5-5.1); TOTAL BILIRUBIN 0.5 mg/dL (<0.1-1.0); TOTAL PROTEIN 5.9 g/dL (6.4-8.2)
[2016-09-02 07:54] VITALS: BP 165/85
[2016-09-02 08:02] LABS: ABSOLUTE NEUTROPHILS 12.9 thou/uL (1.4-8.2); TOTAL CELL COUNT 100
[2016-09-02 12:45] VITALS: BP 151/78
[2016-09-02 16:12] VITALS: BP 166/88
[2016-09-02 20:46] VITALS: BP 160/75
[2016-09-03 03:38] VITALS: BP 147/71
[2016-09-03 07:22] LABS: CALCIUM 7.6 mg/dL (8.5-10.1); CREATININE 1.6 mg/dL (0.6-1.3); PHOSPHORUS 2.2 mg/dL (2.5-4.9); POTASSIUM 3.5 mmol/L (3.5-5.1)
[2016-09-03 07:35] VITALS: BP 156/71
[2016-09-03 11:00] VITALS: BP 137/61
[2016-09-03] MEDS ORDERED: HEPARIN SO5000 UNIT/ SUBQ (14:47)
[2016-09-03] MEDS ORDERED: CARVEDILOL12.5 MG PO (14:48)
[2016-09-03] MEDS ORDERED: POTASSIUM20 MEQ/15 PER TUBE (14:49)
[2016-09-03] MEDS ORDERED: LASIX 20 MG TAB20 MG PER TUBE (14:49)
[2016-09-03] MEDS ORDERED: ACETAMINOP160 MG/54 PER TUBE (14:49)
[2016-09-03] MEDS ORDERED: LANTUS100 UNIT/M SUBQ (14:50)
[2016-09-03] MEDS ORDERED: PROTONIX 440 MG/VIA2 IV PUSH (14:50)
[2016-09-03] MEDS ORDERED: ARTIFICIAL TEA1 EACH OPHTHALMIC (14:50)
[2016-09-03] MEDS ORDERED: NOVOLOG100 UNIT/1 SUBQ (14:51)
[2016-09-25] MEDS ORDERED: LIPITOR 20 MG T20 M1 PO (12:22)
[2016-09-25] MEDS ORDERED: LASIX 20 MG TAB20 MG PER TUBE (12:26)
[2016-09-25] MEDS ORDERED: LEVEMIR SQ (12:27)
[2016-09-25] MEDS ORDERED: LANSOPRAZOLE30 MG PER TUBE (12:29)
[2016-09-25] MEDS ORDERED: MEROPENEM500 MG IV (12:30)
[2016-09-25] MEDS ORDERED: POLYSACCHARIDE150 MG PO (12:31)
[2016-09-25] MEDS ORDERED: METHYLPREDNISOL32 MG IV (12:31)
[2016-09-25] MEDS ORDERED: SILVADENE20 GM TOP (12:33)
[2016-09-25] MEDS ORDERED: [UNRECOGNIZED DRUG - OTHER] PER TUBE (12:34)
[2016-09-25] MEDS ORDERED: POVIDONE IODIN TOP (12:35)
== END 2016-09-03 17:07 | DRG 4 ==
LOC: ER 17:04 → EROBS 18:39 → ICU 18:39 → 3N 08-17 14:14 → ICU 08-20 21:53 → 4W 09-01 01:01
PROVIDERS: Emergency Medicine; Hospitalist; Internal Medicine; Internal Medicine Nephrology; Internal Medicine Pulmonary Disease; Nurse Practitioner; Nurse Practitioner Acute Care; Nurse Practitioner Family; Registered Nurse
PROC: 02HV33Z Insertion of Infusion Device into Superior Vena Cava, Percutaneous Approach (ICD-10-PCS; 2016-08-14)
PROC: B548ZZA Ultrasonography of Superior Vena Cava, Guidance (ICD-10-PCS; 2016-08-14)
PROC: 5A1955Z Respiratory Ventilation, Greater than 96 Consecutive Hours (ICD-10-PCS; principal; 2016-08-21)
PROC: 0B110F4 Bypass Trachea to Cutaneous with Tracheostomy Device, Open Approach (ICD-10-PCS; 2016-08-21)
PROC: 30233N1 Transfusion of Nonautologous Red Blood Cells into Peripheral Vein, Percutaneous Approach (ICD-10-PCS; 2016-09-01)
DX: A41.9 Sepsis, unspecified organism (principal); J96.01 Acute respiratory failure with hypoxia; G92 Toxic encephalopathy; E11.00 Type 2 diabetes mellitus with hyperosmolarity without nonketotic hyperglycemic-hyperosmolar coma (NKHHC); E43 Unspecified severe protein-calorie malnutrition; J69.0 Pneumonitis due to inhalation of food and vomit; N17.9 Acute kidney failure, unspecified; N39.0 Urinary tract infection, site not specified; E87.0 Hyperosmolality and hypernatremia; I69.354 Hemiplegia and hemiparesis following cerebral infarction affecting left non-dominant side; E78.5 Hyperlipidemia, unspecified; E11.9 Type 2 diabetes mellitus without complications; B96.1 Klebsiella pneumoniae [K. pneumoniae] as the cause of diseases classified elsewhere; R13.10 Dysphagia, unspecified; N40.0 Benign prostatic hyperplasia without lower urinary tract symptoms; F03.90 Unspecified dementia, unspecified severity, without behavioral disturbance, psychotic disturbance, mood disturbance, and anxiety; D64.9 Anemia, unspecified; G40.909 Epilepsy, unspecified, not intractable, without status epilepticus; R65.20 Severe sepsis without septic shock; E11.65 Type 2 diabetes mellitus with hyperglycemia; E86.0 Dehydration; E87.5 Hyperkalemia; I10 Essential (primary) hypertension; Z68.21 Body mass index [BMI] 21.0-21.9, adult; I69.391 Dysphagia following cerebral infarction; Z88.0 Allergy status to penicillin; I69.320 Aphasia following cerebral infarction
CPT/HCPCS: 10045; 10078; 10096; 27000; 50101; 50386; 50398; 50517; 52190; 56526; 57006; 62110; 62900